=== PATIENT | female | born 1945 | race Caucasian/White ===

== ENCOUNTER 2019-09-03 18:35 | Inpatient (IN) | payer MEDICARE, OTHER ==
--- NOTE | 2019-09-03 19:00 | ED ---
General Adult HPI - General Chief complaint: Seizure Stated complaint: Neuro Issues Time Seen by Provider: 09/03/19 18:37 Source: patient, RN/MD, EMS, RN notes reviewed, old records reviewed Mode of arrival: EMS Limitations: no limitations - History of Present Illness Initial comments: Patient is a pleasant 73-year-old female presenting to the emergency department with concern for seizure. Patient was seen yesterday at [facility] following being unresponsive and difficult to arouse. Patient was then discharged. Patient today had a generalized tonic-clonic seizure witnessed by family. Patient then was postictal while in the emergency department. Patient has improved. Patient feels fatigued and achy. No history of similar symptoms previously. Patient states she did take lipozeene a few times in the beginning of the week. This was a new thing for her. At this time patient denies any weakness or confusion or change in mental status. - Related Data Home Medications Medication Instructions Recorded Confirmed Aspirin 81 mg PO DAILY 08/06/14 08/18/14 Glucosam/Neil-Msm1/C/Juventino/Bosw 1 tab PO BID 08/06/14 08/17/14 [Glucosamine-Chondroitin Tablet] Ibuprofen [Motrin] 200 - 400 mg PO Q6HR PRN 08/06/14 08/17/14 Multivit with Calcium,Iron,Min 1 each PO DAILY 08/06/14 08/17/14 [Women's Daily Multivitamin] Allergies Allergy/AdvReac Type Severity Reaction Status Date / Time No Known Allergies Allergy Verified 08/17/14 08:41 Review of Systems ROS Statement: Those systems with pertinent positive or pertinent negative responses have been documented in the HPI. ROS Other: All systems not noted in ROS Statement are negative. Constitutional: Denies: fever Eyes: Denies: eye pain ENT: Denies: ear pain Respiratory: Denies: cough, dyspnea Cardiovascular: Denies: chest pain Endocrine: Reports: fatigue Gastrointestinal: Denies: abdominal pain Genitourinary: Denies: dysuria Musculoskeletal: Denies: back pain Skin: Denies: rash Neurological: Reports: as per HPI Past Medical History Past Medical History: Eye Disorder, Hypertension, Osteoarthritis (OA), Seizure Disorder Additional Past Medical History / Comment(s): cataracts History of Any Multi-Drug Resistant Organisms: None Reported Past Surgical History: No Surgical Hx Reported Additional Past Surgical History / Comment(s): left/right cataract 08/06/14 Past Anesthesia/Blood Transfusion Reactions: No Reported Reaction Additional Past Anesthesia/Blood Transfusion Reaction / Comment(s): never had anes., no family problems Past Psychological History: Anxiety Smoking Status: Never smoker Past Alcohol Use History: None Reported Past Drug Use History: None Reported - Past Family History Mother Family Medical History: Cancer General Exam Limitations: no limitations General appearance: alert, in no apparent distress Head exam: Present: normocephalic Eye exam: Present: normal appearance, PERRL, EOMI. Absent: nystagmus Respiratory exam: Present: normal lung sounds bilaterally Cardiovascular Exam: Present: regular rate, normal rhythm GI/Abdominal exam: Present: soft. Absent: tenderness Extremities exam: Present: normal inspection Neurological exam: Present: alert, oriented X3, CN II-XII intact. Absent: motor sensory deficit Expanded Neurological exam: Present: protecting the airway Patient oriented to: Present: person, place, time Speech: Present: fluid speech Cranial nerves: EOM's Intact: Normal, Facial Sensation: Normal Motor strength exam: RUE: 5, LUE: 5, RLE: 5, LLE: 5 Eye Response: (4) open spontaneously Motor Response: (6) obeys commands Verbal Response: (5) oriented Psychiatric exam: Present: normal affect, normal mood Skin exam: Present: normal color Course Vital Signs 09/03/19 18:36 Temperature 99.6 F Pulse Rate 93 Respiratory 18 Rate Blood Pressure 152/78 O2 Sat by Pulse 97 Oximetry Medical Decision Making - Medical Decision Making Chart reviewed from [facility]. Dr. Keyes has been paged for admission for hospital call. Disposition Clinical Impression: New onset seizure Disposition: ADMITTED IP TO THIS HOSP Is patient prescribed a controlled substance at d/c from ED?: No Referrals: None,Stated [Primary Care Provider] - 1-2 days Decision Time: 18:59
[2019-09-03] MEDS ORDERED: ASPIRIN 325 MG TAB PO STA (19:01)
[2019-09-03] MEDS: SODIUM CHLORIDE 0.9% 1,000 ML IV SCH (19:25)
[2019-09-03] MEDS: levETIRAcetam IV 500 MG in SODIUM CHLORIDE 0.9% 100 ML IVPB SCH (19:25)
--- NOTE | 2019-09-03 21:48 | US ---
EXAMINATION TYPE: US carotid duplex BILAT DATE OF EXAM: 09/03/2019 COMPARISON: CT CLINICAL HISTORY: Stenosis. Stenosis. Patient had seizure today. HTN. EXAM MEASUREMENTS: RIGHT: Peak Systolic Velocity (PSV) cm/sec ----- Right CCA: 94.7 ----- Right ICA: 94.3 ----- Right ECA: 89.8 ICA/CCA ratio: 1.0 RIGHT: End Diastole cm/sec ----- Right CCA: 18.7 ----- Right ICA: 22.3 ----- Right ECA: 12.3 LEFT: Peak Systolic Velocity (PSV) cm/sec ----- Left CCA: 89.4 ----- Left ICA: 89.4 ----- Left ECA: 83.6 ICA/CCA ratio: 1.0 LEFT: End Diastole cm/sec ----- Left CCA: 17.9 ----- Left ICA: 23.4 ----- Left ECA: 11.1 VERTEBRALS (direction of flow): Right Vertebral: Antegrade Left Vertebral: Antegrade Rhythm: Normal Tortuous proximal carotid arteries. Elevated velocity obtained right prox CCA. Intimal thickening see n bilaterally. Minimal hyperechoic plaque seen bilateral carotid bifurcations. Hypoechoic area with hyperechoic center seen right neck: 0.9 x 0.9 x 0.3 cm. Hypoechoic-anechoic area seen right neck just superior and anterior to the carotid bifurcation. Area measures: 0.9 x 0.8 x 0.7 cm. Hypoechoic area with hyperechoic center seen left neck: 1.4 x 0.9 x 0.5 cm. *Incidental finding: Heterogeneous left thyroid lobe. Mixed isoechoic area seen with internal vascula rity seen measurin.5 x 1.1 x 0.9 cm. IMPRESSION: There is bilateral plaque formation. There is elevated velocity in the right and left common carotid arteries suggestive of 50-70% stenosis. There is antegrade flow in the vertebral arteries. Criteria for Assigning % of Stenosis / Diameter reduction (Estimation based on the indirect measurements of the internal carotid artery velocities (ICA PSV). 1. Normal (no stenosis)=ICA PSV < 125 cm/s: ratio < 2.0: ICA EDV<40 cm/s. 2. Less than 50% stenosis=ICA PSV < 125 cm/s: ratio < 2.0: ICA EDV<40 cm/s. 3. 50 to 69% stenosis=ICA PSV of 125 to 230 cm/s: ration 2.0 ? 4.0: ICA EDV 40-100 cm/s. 4. Greater than 70% stenosis to near occlusion= ICA PSV > 230 cm/s: ratio > 4.0: ICA EDV > 100 cm/s. 5. Near occlusion= ICA PSV velocities may be low or undetectable: variable ratio and ICA EDV. 6. Total occlusion=unable to detect flow.
[2019-09-04] MEDS: SODIUM CHLORIDE 0.9% 1,000 ML IV SCH ×2 (05:49→20:44)
[2019-09-04] MEDS: levETIRAcetam IV 500 MG in SODIUM CHLORIDE 0.9% 100 ML IVPB SCH ×2 (08:23→20:44)
[2019-09-04 09:23] LABS: Cholesterol 219 mg/dL (<200); HDL Cholesterol 53 mg/dL (40-60); LDL Cholesterol,Calculated 153 mg/dL (0-99); Triglycerides 66 mg/dL (<150)
[2019-09-04 10:33] LABS: HCT 39.2 % (34.0-46.0); MCH 31.3 pg (25.0-35.0); MCHC 33.3 g/dL (31.0-37.0); MCV 93.8 fL (80.0-100.0); Mean Platelet Volume 8.7; Platelet Count 199 k/uL (150-450); RBC 4.18 m/uL (3.80-5.40); RDW 12.3 % (11.5-15.5); WBC 8.2 k/uL (3.8-10.6)
--- NOTE | 2019-09-04 10:40 | MR ---
EXAMINATION TYPE: MR brain wo con DATE OF EXAM: 09/04/2019 COMPARISON: Outside CT dated 09/03/2019 no report available from the outside CT HISTORY: New onset of Seizures TECHNIQUE: Multiplanar, multisequence images of the brain and brainstem is performed without intravenous contras t. FINDINGS: Diffusion weighted images demonstrate no evidence of a recent infarct or other diffusion ab normality. There is no extra-axial fluid collection. There are scattered foci of T2/FLAIR hyperinten sity within the periventricular and subcortical white matter. Overall moderate burden in this patient most confluent in the periatrial white matter. Mesial temporal lobes are symmetric and unremarkable. The ventricular system and cisternal spaces are are prominent compatible with age-related volume los s. The right lateral ventricle is slightly larger than the left in the occipital horn, which may be c ongenital. Midline structures demonstrate normal morphology. The craniocervical junction appears within normal limits. Post contrast images demonstrate no abnormal enhancement. The dural venous sinuses appear pa tent. The visualized sinuses display mild circumferential mucosal thickening in the right maxillary s inus and mild mucosal thickening in the ethmoid sinuses. Frontal sinuses are hypoplastic. Rightward n elbert septal deviation is seen with left-sided mucosal hypertrophy of the nasal turbinates. Very trace amount of fluid in the left mastoid air cells. Orbits are symmetric.. IMPRESSION: 1. No acute infarct, midline shift or mass effect. 2. Age-related cerebral atrophy and moderate burden nonspecific white matter change, most commonly on the basis of chronic microangiopathy. 3. Mild paranasal sinus disease with trace amount of fluid in the left mastoid air cells.
[2019-09-04 11:06] LABS: Calcium 8.5 mg/dL (8.4-10.2)
--- NOTE | 2019-09-04 12:07 | P.HPIM ---
History of Present Illness 73-year-old female was admitted for possibly a seizure. Patient was recently discharged from [facility] after she was evaluated for unresponsiveness. Doesn't appear like much of workup was done at that time shortly after the discharge patient was shopping found to be unresponsive with some tonic activity no loss of bowel or bladder incontinence patient had lip biting may be a tongue bite too. Patient feels fatigued and achy. Patient was confused to this episode patient denied any aura-like symptoms, patient denied any headache or photophobia phonophobia, denied any weakness or loss of sensation anywhere. Patient denied any fever chills dysuria cough, no evidence of sepsis patient denied any drug abuse. Review of Systems REVIEW OF SYSTEMS: CONSTITUTIONAL: No fever, no malaise, no fatigue. HEENT: No recent visual problems or hearing problems. Denied any sore throat. CARDIOVASCULAR: No chest pain, orthopnea, PND, no palpitations, no syncope. PULMONARY: No shortness of breath, no cough, no hemoptysis. GASTROINTESTINAL: No diarrhea, no nausea, no vomiting, no abdominal pain. NEUROLOGICAL: No headaches, no weakness, no numbness. HEMATOLOGICAL: Denies any bleeding or petechiae. GENITOURINARY: Denies any burning micturition, frequency, or urgency. MUSCULOSKELETAL/RHEUMATOLOGICAL: Denies any joint pain, swelling, or any muscle pain. ENDOCRINE: Denies any polyuria or polydipsia. The rest of the 14-point review of systems is negative. Past Medical History Past Medical History: Eye Disorder, Hypertension, Osteoarthritis (OA), Seizure Disorder Additional Past Medical History / Comment(s): cataracts History of Any Multi-Drug Resistant Organisms: None Reported Past Surgical History: No Surgical Hx Reported Additional Past Surgical History / Comment(s): left/right cataract 08/06/14 Past Anesthesia/Blood Transfusion Reactions: No Reported Reaction Additional Past Anesthesia/Blood Transfusion Reaction / Comment(s): never had anes., no family problems Past Psychological History: Anxiety Additional Psychological History / Comment(s): related to procedure Smoking Status: Never smoker Past Alcohol Use History: None Reported Past Drug Use History: None Reported - Past Family History Mother Family Medical History: Cancer Medications and Allergies Home Medications Medication Instructions Recorded Confirmed Type Fish Oil/Dha/Epa [Fish Oil 1,200 1 cap PO DAILY 09/03/19 09/03/19 History mg Fish Oil] Lipozene 1 cap PO DAILY 09/03/19 09/03/19 History Losartan [Cozaar] 50 mg PO DAILY 09/03/19 09/04/19 History Sulfamethox-Tmp 800-160Mg [Bactrim 1 tab PO BID 09/03/19 09/04/19 History DS 800-160 mg] Allergies Allergy/AdvReac Type Severity Reaction Status Date / Time No Known Allergies Allergy Verified 09/04/19 10:51 Physical Exam Vitals: Vital Signs Temp Pulse Pulse Resp BP BP Pulse Ox 09/04/19 08:00 79 16 09/04/19 07:54 99.3 F 79 16 128/75 94 L 09/04/19 03:41 99.1 F 75 17 133/74 96 09/04/19 00:23 98.4 F 77 16 147/72 95 09/04/19 00:04 82 18 140/73 97 09/03/19 23:11 98.4 F 77 16 147/72 95 09/03/19 23:00 98.2 F 70 18 120/73 97 09/03/19 21:00 87 18 134/81 96 09/03/19 18:36 99.6 F 93 18 152/78 97 Intake and Output 09/03/19 09/04/19 09/04/19 22:59 06:59 14:59 Other: # Voids 2 Weight 68.039 kg 68.039 kg PHYSICAL EXAMINATION: GENERAL: The patient is alert and oriented x3, not in any acute distress. Well developed, well nourished. HEENT: Pupils are round and equally reacting to light. EOMI. No scleral icterus. No conjunctival pallor. Normocephalic, atraumatic. No pharyngeal erythema. No thyromegaly. CARDIOVASCULAR: S1 and S2 present. No murmurs, rubs, or gallops. PULMONARY: Chest is clear to auscultation, no wheezing or crackles. ABDOMEN: Soft, nontender, nondistended, normoactive bowel sounds. No palpable organomegaly. MUSCULOSKELETAL: No joint swelling or deformity. EXTREMITIES: No cyanosis, clubbing, or pedal edema. NEUROLOGICAL: Gross neurological examination did not reveal any focal deficits. SKIN: No rashes. Results CBC & Chem 7: 09/04/19 08:19 09/04/19 08:19 Labs: Abnormal Lab Results - Last 24 Hours (Table) 09/04/19 Range/Units 08:19 Cholesterol 219 H (<200) mg/dL LDL Cholesterol, Calc 153 H (0-99) mg/dL Thrombosis Risk Factor Assmnt - Choose All That Apply Each Risk Factor Represents 2 Points: Age 61-74 years Thrombosis Risk Factor Assessment Total Risk Factor Score: 2 Thrombosis Risk Factor Assessment Level: Low Risk Assessment and Plan Plan: -Possible new onset seizure patient is undergoing stroke workup as well as seizure workup LDL is elevated neurology will evaluate the patient and patient was started on Keppra patient had an MRI which did not show any stroke or any other significant abnormality patient is awaiting EEG echocardiogram is also being obtained at this time. There is no evidence of infection at this time. Patient is on seizure precautions -Hypertension Cozaar will be resumed monitor the blood pressure
[2019-09-04] MEDS ORDERED: LOSARTAN 50 MG TAB PO STA (19:48)
--- NOTE | 2019-09-04 22:10 | EEG ---
ELECTROENCEPHALOGRAM REPORT DATE OF SERVICE: 09/04/2019. HISTORY: This is an inpatient EEG requested for further evaluation of altered mental status in a 73-year-old female. No prior EEG is available for comparison. TECHNICAL REPORT: This is an inpatient EEG performed on an [employer] (Ins[employer]) EEG monitor with electrodes placed according to the international 10-20 system and a single EKG channel. Simultaneous video EEG monitoring was performed. This EEG was reviewed in both longitudinal bipolar common average referential and transverse montages. Photic stimulation was performed. Hyperventilation was not performed. The recording begins with a very low amplitude background with excessive muscle artifact noted. The awake background ranges from beginning at 7 Hz, which is consistent with drowsiness, then the patient awakens more during the initial portion of the study with her posterior-dominant rate rhythm ranging between 9 and maximum 13 Hz. The posterior-dominant rhythm minimally attenuates with eye opening. Photic stimulation was performed at various flash frequencies and failed to elicit a consistent driving response. Following photic stimulation, the patient transitioned into drowsiness, which was associated with the attenuation of the background. Rare slow rolling eye movements were noted. An increase in beta activity was more prominent in the anterior and central head regions. The patient transitioned into stage II sleep at 16:41:29. This was associated with a slowing of the background frequencies to mixed theta range. Synchronous sleep spindles were quite prominent throughout stage II sleep. Rare vertex waves were noted. Deeper stages of sleep were not achieved. Toward the end of the recording, the patient abruptly aroused out of stage II sleep and returned to brief wakefulness toward the end of the study. The patient had excessive muscle artifact superimposed over the background. The posterior-dominant rhythm toward the end of this recording ranged between 12 and 13 Hz. IMPRESSION: This is a normal wake drowsy sleep EEG study. No abnormalities were noted such as electrographic seizures, clinical seizures or hemispheric or focal slowing. No abnormalities were noted during photic stimulation. No abnormalities were noted during the EKG. CLINICAL CORRELATION: This EEG does not rule out an underlying seizure tendency; thus further clinical correlation is needed. If clinically indicated, a more prolonged overnight study and/or serial EEGs are recommended. MMODL / IJN: [id number] / DANNIELLE
[2019-09-05] MEDS: ASPIRIN 325 MG TAB PO SCH ×2 (02:20→08:20)
[2019-09-05] MEDS: SODIUM CHLORIDE 0.9% 1,000 ML IV SCH ×3 (05:26→20:33)
[2019-09-05 06:53] LABS: HCT 38.9 % (34.0-46.0); HGB 12.1 gm/dL (11.4-16.0); MCH 29.7 pg (25.0-35.0); MCHC 31.2 g/dL (31.0-37.0); MCV 95.3 fL (80.0-100.0); Platelet Count 188 k/uL (150-450); RBC 4.08 m/uL (3.80-5.40); RDW 12.3 % (11.5-15.5); WBC 7.8 k/uL (3.8-10.6)
[2019-09-05] MEDS: levETIRAcetam IV 500 MG in SODIUM CHLORIDE 0.9% 100 ML IVPB SCH ×2 (08:20→20:32)
[2019-09-05] MEDS: LOSARTAN 50 MG TAB PO SCH (08:20)
--- NOTE | 2019-09-05 11:37 | ECHOF ---
Referral Reason:Thrombus MEASUREMENTS -------- HEIGHT: 170.2 cm WEIGHT: 68.0 kg BP: 133/74 RVIDd: 3.2 cm (< 3.3) IVSd: 1.4 cm (0.6 - 1.1) LVIDd: 3.7 cm (3.9 - 5.3) LVPWd: 1.4 cm (0.6 - 1.1) IVSs: 1.9 cm LVIDs: 2.5 cm LVPWs: 2.0 cm LA Diam: 3.0 cm (2.7 - 3.8) LAESV Index (A-L): 20.77 ml/m Ao Diam: 3.9 cm (2.0 - 3.7) AV Cusp: 2.3 cm (1.5 - 2.6) MV EXCURSION: 13.189 mm (> 18.000) MV EF SLOPE: 60 mm/s (70 - 150) EPSS: 0.6 cm MV E Fredrick: 0.76 m/s MV DecT: 294 ms MV A Fredrick: 0.98 m/s MV E/A Ratio: 0.77 RAP: 5.00 mmHg RVSP: 28.71 mmHg FINDINGS -------- Sinus rhythm. This was a technically adequate study. The left ventricular size is normal. There is moderate concentric left ventricular hypertrophy. O verall left ventricular systolic function is normal with, an EF between 60 - 65 %. The right ventricle is normal in size. Normal LA size by volume 22+/-6 ml/m2. The right atrium is normal in size. Aneurysmal Interatrial septum. There is mild aortic valve sclerosis. There is mild aortic regurgitation. The mitral valve is normal. Mild tricuspid regurgitation present. Right ventricular systolic pressure is normal at < 35 mmHg. Trace/mild (physiologic) pulmonic regurgitation. The aortic root is dilated measuring 3.9cm. Normal inferior vena cava with normal inspiratory collapse consistent with estimated right atrial pre ssure of 5 mmHg. There is no pericardial effusion. CONCLUSIONS -------- 1. Sinus rhythm. 2. This was a technically adequate study. 3. The left ventricular size is normal. 4. There is moderate concentric left ventricular hypertrophy. 5. Overall left ventricular systolic function is normal with, an EF between 60 - 65 %. 6. The right ventricle is normal in size. 7. Normal LA size by volume 22+/-6 ml/m2. 8. The right atrium is normal in size. 9. Aneurysmal Interatrial septum. 10. There is mild aortic valve sclerosis. 11. There is mild aortic regurgitation. 12. The mitral valve is normal. 13. Mild tricuspid regurgitation present. 14. Right ventricular systolic pressure is normal at < 35 mmHg. 15. Trace/mild (physiologic) pulmonic regurgitation. 16. The aortic root is dilated measuring 3.9cm. 17. Normal inferior vena cava with normal inspiratory collapse consistent with estimated right atrial pressure of 5 mmHg. 18. There is no pericardial effusion. WELDING MACHINE SETTER: Mary Ca RDCS
--- NOTE | 2019-09-05 14:49 | P.PN ---
Subjective 73-year-old female was admitted for possibly a seizure. Patient was recently discharged from [facility] after she was evaluated for unresp onsiveness. Doesn't appear like much of workup was done at that time shortly after the discharge patient was shopping found to be unresponsive with some tonic activity no loss of bowel or bladder incontinence patient had lip biting may be a tongue bite too. Patient feels fatigued and achy. Patient was confused to this episode patient denied any aura-like symptoms, patient denied any headache or photophobia phonophobia, denied any weakness or loss of sensation anywhere. Patient denied any fever chills dysuria cough, no evidence of sepsis patient denied any drug abuse. 09/05/2019 No overnight events patient had an EEG which did not show any significant abnormality MRI didn't show any acute stroke carotid Doppler showed 50-75 stenosis in both external carotids, neurology will evaluate the patient. Patient is alert oriented 3 at this time Constitutional: Denied any fatigue denied any fever. Cardio vascular: denied any chest pain, palpitations Gastrointestinal denied any nausea vomiting Pulmonary: Denied any shortness of breath cough Neurologic denied any new focal deficits All inpatient medications were reviewed and appropriate changes in these medications as dictated in the interval history and assessment and plan. Objective - Vital Signs Vital signs: Vital Signs Temp 98.7 F 09/05/19 07:00 Pulse 74 09/05/19 08:00 Resp 18 09/05/19 08:00 BP 160/78 09/05/19 07:00 Pulse Ox 94 L 09/05/19 07:00 Intake & Output 09/04/19 09/05/19 09/05/19 18:59 06:59 18:59 Intake Total 180 Balance 180 Intake: Oral 180 Other: # Voids 2 1 - Exam PHYSICAL EXAMINATION: GENERAL: The patient is alert and oriented x3, not in any acute distress. Well developed, well nourished. HEENT: Pupils are round and equally reacting to light. EOMI. No scleral icterus. No conjunctival pallor. Normocephalic, atraumatic. No pharyngeal erythema. No thyromegaly. CARDIOVASCULAR: S1 and S2 present. No murmurs, rubs, or gallops. PULMONARY: Chest is clear to auscultation, no wheezing or crackles. ABDOMEN: Soft, nontender, nondistended, normoactive bowel sounds. No palpable organomegaly. MUSCULOSKELETAL: No joint swelling or deformity. EXTREMITIES: No cyanosis, clubbing, or pedal edema. NEUROLOGICAL: Gross neurological examination did not reveal any focal deficits. SKIN: No rashes. - Labs CBC & Chem 7: 09/05/19 06:15 09/04/19 08:19 Assessment and Plan Plan: -Possible new onset seizure patient is undergoing stroke workup as well as seizure workup LDL is elevated neurology will evaluate the patient and patient was started on Keppra patient had an MRI which did not show any stroke or any other significant abnormality EEG and echocardiogram no significant abnormality. Carotid Doppler less than 70% occlusion in both carotids Patient is on seiz ure precautions -Hypertension Cozaar will be resumed monitor the blood pressure
[2019-09-06] MEDS: amLODIPine 5 MG TAB PO SCH ×2 (00:41→08:46)
[2019-09-06] MEDS: SODIUM CHLORIDE 0.9% 1,000 ML IV SCH ×2 (04:08→08:46)
[2019-09-06] MEDS: LOSARTAN 50 MG TAB PO SCH (08:45)
[2019-09-06] MEDS: ASPIRIN 325 MG TAB PO SCH (08:46)
[2019-09-06] MEDS: levETIRAcetam IV 500 MG in SODIUM CHLORIDE 0.9% 100 ML IVPB SCH (08:46)
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
--- NOTE | 2019-09-06 14:02 | P.CNNES ---
History of Present Illness Consult date: 09/05/19 Reason for Consult: NEW ONSET SEIZURE History of Present Illness: LATE NOTE ENTRY FOR 09/05/19 This is a new neurology note requested for further advice and recommendations for 73-year-old female for possible seizures. The patient had initially been evaluated at [facility] for altered mental status. The history I obtained is both from herself and her son. Apparently while the patient was shopping this was prior to admission recurrent she had a generalized tonic- clonic seizure with balance bladder incontinence unprovoked. Also lip biting was noted. The patient denies any prior illness or sick contacts prior to the event. Prior to this event the patient reports that her had her on Saturday at 9:30 PM while sleeping he found her gurgling she woke up and went back to sleep. She did this again in the EMS came and evaluated her. Follow she was admitted to [facility] and then reportedly had another event. According to her son however while he was driving she was in the backseat of the car and had a seizure where she actually became cyanotic the story is corrected she's had 3 unprovoked seizures. Her workup includes the normal EEG of the brain. A MRI of the brain without any evidence of intracranial pathology. A carotid Doppler study that showed 50-75% percent stenosis of the external carotid arteries. A CT angiogram head and neck showed no evidence of high-grade stenosis or large vessel occlusion. This patient does have stroke risk factors which include hypertension and dyslipidemia. On September 03 the patient underwent a cardiac echo with an ejection fraction of 6065% . Mild aortic valve stenosis was seen along with mild aortic valve regurgitation. The patient provides additional history that the week these events occurred she had started experimenting taking bovine college and a diet pill known his glipizide which is KONJAC root which is an appetite suppressant. The patient reports that on the second time she took a collagen she experienced swelling of her throat and this occurred the night she had the first event that her witnessed. Since the second event with filling the throat fullness she is no longer taking bovine collagen. Further discussion with her hospitalist on the first 2 days of admission the patient did apparently have prolonged postictal state of confusion and fogginess. However today during this intake the patient was totally coherent and back to her baseline. Past Medical History Past Medical History: Eye Disorder, Hypertension, Osteoarthritis (OA), Seizure Disorder Additional Past Medical History / Comment(s): cataracts History of Any Multi-Drug Resistant Organisms: None Reported Past Surgical History: No Surgical Hx Reported Additional Past Surgical History / Comment(s): left/right cataract 08/06/14 Past Anesthesia/Blood Transfusion Reactions: No Reported Reaction Additional Past Anesthesia/Blood Transfusion Reaction / Comment(s): never had anes., no family problems Past Psychological History: Anxiety Additional Psychological History / Comment(s): related to procedure Smoking Status: Never smoker Past Alcohol Use History: None Reported Past Drug Use History: None Reported - Past Family History Mother Family Medical History: Cancer Medications and Allergies Home Medications Medication Instructions Recorded Confirmed Type Fish Oil/Dha/Epa [Fish Oil 1,200 1 cap PO DAILY 09/03/19 09/03/19 History mg Fish Oil] Lipozene 1 cap PO DAILY 09/03/19 09/03/19 History Aspirin 81 mg PO DAILY #30 chewable 09/06/19 Rx Losartan [Cozaar] 100 mg PO DAILY #0 09/06/19 09/04/19 Rx levETIRAcetam [Keppra] 500 mg PO BID #60 tab 09/06/19 Rx Allergies Allergy/AdvReac Type Severity Reaction Status Date / Time No Known Allergies Allergy Verified 09/04/19 10:51 Physical Examination - Vital Signs Vital Signs: Vital Signs Temp Pulse Pulse Resp BP BP Pulse Ox 09/06/19 06:46 98.1 F 78 18 179/85 92 L 09/06/19 01:00 98.3 F 67 20 158/82 95 09/05/19 20:00 98 F 74 20 179/74 95 09/05/19 15:00 97.6 F 72 16 158/86 94 L Intake and Output 09/05/19 09/06/19 09/06/19 22:59 06:59 14:59 Intake Total 100 440 Balance 100 440 Intake: Oral 100 440 Other: Voiding Method Toilet # Voids 1 1 1 General exam: Appearance: No acute distress well-nourished. Moderately obese. HEENT: Clear sclera clear oropharynx broad-based tongue neuro posterior pharynx Saskia Pedroza grade 3. Large neck circumference 15 inches greater circumference. Pupils: 2 mm equally reactive to light and accommodation. Pulses: Radial pedal pulses are equal and symmetric. Extremities: No edema noted in the hands or feet or clubbing of the digits. Neurological exam Mental status patient is awake alert oriented 3. Speech fluent. Affect appropriate. Cranial nerves: Cranial nerves III through XII are intact. No nystagmus noted on vertical horizontal gaze. V1 through V3 sensory is intact. Face is symmetr ic. Palate elevates symmetrically. Cranial nerve VIII is intact by clinical observation. Shoulder shrug symmetric. Tongue midline without fasciculations deviation. Motor examination: Moves all 4 extremities equally. Normal muscle bulk and tone throughout. Strength is 5 out of 5 throughout. Pronator drift negative. No tremors fasciculations noted. No distal wasting of the muscles noted. Coordination testing: Intact to finger to nose testing with eyes open and eyes closed. Rapid sequential finger tapping is intact. He'll serrato maneuver intact. No dysmetria noted on either of these maneuvers. Next Sensory examination: Grossly intact to light touch throughout. Deep tendon reflexes: +2 over biceps brachial radialis. Patellar reflexes are absent. Ankle jerks absent bilaterally. Plantar response mute bilaterally. No ankle clonus elicited. Gait examination deferred. Results - Laboratory Findings CBC and BMP: 09/05/19 06:15 09/04/19 08:19 Abnormal Lab Findings: Abnormal Labs 09/04/19 08:19 Cholesterol 219 H LDL Cholesterol, Calc 153 H Assessment and Plan Assessment: Assessment recommendations this is a 73-year-old female with a known history for hypertension who presented with per report possibly 3 witnessed seizures with postictal state. The etiology for these events are still unclear. Her workup to date does not show any evidence of intracranial mass lesion, aneurysm, dissection or other intracranial pathology. Her history however is suspicious for obstructive sleep apnea. The first event described was while asleep or her found her girdling this could've represented a prolonged apnea which then triggered an anoxic event and seizure. The next 2 events described do appear to be unprovoked seizures warranting this patient to be maintained on a maintenance dose of a broad-spectrum anticon vulsant. Her neurological exam is nonfocal. Additional history is concerning for possible ALLERGY to bovine collagen or even cogent diet stimulator that could possibly triggered some immune response. The patient is a fairly comprehensive cardiovascular workup. Her carotid ultrasound did show a rather higher degree of stenosis than what we saw compared to the CT injury. Carotid ultrasounds can often overestimate the degree of stenosis. I would base a final conclusion on the results of the CT angiogram of the head and neck which were negative. The MRI of the brain also is considered negative for any intracranial pathology. Plan: Recommendations 1. Patient should be maintained on low-dose Keppra 500 mg every 12 and arrange to have follow-up visits with outpatient neurologist. Would recommend a follow- up EEG and if clinically indicated a ambulatory EEG. 2. Patient should continue on enteric-coated aspirin as well as low-dose statin for stroke from 3. I would strongly recommend this patient be evaluated as an outpatient with a home sleep study or in lab overnight polysomnogram to rule out obstructive sleep apnea. Obstructive sleep apnea is the third bleeding risk factor for stroke independent of diabetes, hypertension and atrial fibrillation. 4. Rectal Valium Diastat 15 mg should be provided to discharge and family instructed how to administer this rectally in the event the patient has a prolonged seizure lasting 3-4 minutes. 911 should be activated. 5. The patient has been counseled on driving and seizures for the [facility]. This patient's prognosis remains good. She does however warrant further close monitoring and investigation with outpatient neurology to uncover what might be potentially triggers for these underlying unprovoked seizures. Thank you for this consultation. Patient may be discharged. Cleared by neuro logy.
--- NOTE | 2019-09-06 14:06 | P.DS ---
Providers Date of admission: 09/03/19 19:02 Attending physician: Bhavna Keyes Consults: 09/03/19 19:01 Consult Physician Urgent Consulting Provider: Melany Mckeon Consult Reason/Comments: new onset seizure Do you want consulting provider notified?: Yes Primary care physician: Stated None Hospital Course: 73-year-old female was admitted for possibly a seizure. Patient was recently discharged from [facility] after she was evaluated for unresponsiveness. Doesn't appear like much of workup was done at that time shortly after the discharge patient was shopping found to be unresponsive with some tonic activity no loss of bowel or bladder incontinence patient had lip biting may be a tongue bite too. Patient feels fatigued and achy. Patient was confused to this episode patient denied any aura-like symptoms, patient denied any headache or photophobia phonophobia, denied any weakness or loss of sensation anywhere. Patient denied any fever chills dysuria cough, no evidence of sepsis patient denied any drug abuse. 09/05/2019 No overnight events patient had an EEG which did not show any significant abnormality MRI didn't show any acute stroke carotid Doppler showed 50-75 stenosis in both external carotids, neurology will evaluate the patient. Patient is alert oriented 3 at this time 09/06/[address] angiogram of the head and neck did not show any carotid stenosis, although patient will be discharged on aspirin her LDL is 150 will be discharged on low-dose of statin. Neurology is recommending Keppra 500 twice a day until patient is evaluated by neurology as an outpatient. MRA showed age-related cerebral atrophy with nonspecific white matter changes no other significant abdominal he was appreciated. Patient had a clinical seizures because of which are patient is being discharged on Keppra and as needed Valium PHYSICAL EXAMINATION: GENERAL: The patient is alert and oriented x3, not in any acute distress. Well developed, well nourished. HEENT: Pupils are round and equally reacting to light. EOMI. No scleral icterus. No conjunctival pallor. Normocephalic, atraumatic. No pharyngeal erythema. No thyromegaly. CARDIOVASCULAR: S1 and S2 present. No murmurs, rubs, or gallops. PULMONARY: Chest is clear to auscultation, no wheezing or crackles. ABDOMEN: Soft, nontender, nondistended, normoactive bowel sounds. No palpable organomegaly. MUSCULOSKELETAL: No joint swelling or deformity. EXTREMITIES: No cyanosis, clubbing, or pedal edema. NEUROLOGICAL: Gross neurological examination did not reveal any focal deficits. SKIN: No rashes. Assessment and Plan Plan: -Possible new onset seizure further management as mentioned above stroke was ruled ou. patient had 3 clinical seizures -Hyperlipidemia -Hypertension Cozaar will be continued and we will increase the dose to 100 Plan - Discharge Summary Discharge Rx Participant: No New Discharge Prescriptions: New Aspirin 81 mg PO DAILY #30 chewable levETIRAcetam [Keppra] 500 mg PO BID #60 tab Continue Fish Oil/Dha/Epa [Fish Oil 1,200 mg Fish Oil] 1 cap PO DAILY Lipozene 1 cap PO DAILY Changed Losartan [Cozaar] 100 mg PO DAILY #0 Discontinued Sulfamethox-Tmp 800-160Mg [Bactrim DS 800-160 mg] 1 tab PO BID Discharge Medication List Fish Oil/Dha/Epa [Fish Oil 1,200 mg Fish Oil] 1 cap PO DAILY 09/03/19 [History] Lipozene 1 cap PO DAILY 09/03/19 [History] Aspirin 81 mg PO DAILY #30 chewable 09/06/19 [Rx] Losartan [Cozaar] 100 mg PO DAILY #0 09/06/19 [Rx] levETIRAcetam [Keppra] 500 mg PO BID #60 tab 09/06/19 [Rx] Follow up Appointment(s)/Referral(s): Leonardo Lakhani MD [REFERRING] - 1 Week Jeremias Hobbs MD [STAFF PHYSICIAN] - 1 Week Discharge Disposition: HOME SELF-CARE
[2019-09-06 16:10] VITALS: BP 167/90; PULSE 82; RESP 16; TEMP 97.7
== END 2019-09-06 16:25 | disposition home or self-care (01) | DRG 101 ==
LOC: EC 18:35 → 4SSUR 19:02
PROVIDERS: ADMIT Hospitalist; ATTEND Hospitalist
DX: G40.409 Other generalized epilepsy and epileptic syndromes, not intractable, without status epilepticus (principal); G31.9 Degenerative disease of nervous system, unspecified; Z11.59 Encounter for screening for other viral diseases; I10 Essential (primary) hypertension; M19.90 Unspecified osteoarthritis, unspecified site; F41.9 Anxiety disorder, unspecified; E78.5 Hyperlipidemia, unspecified; I35.2 Nonrheumatic aortic (valve) stenosis with insufficiency; G47.33 Obstructive sleep apnea (adult) (pediatric); Z79.899 Other long term (current) drug therapy; Z98.42 Cataract extraction status, left eye; Z98.41 Cataract extraction status, right eye; Z80.9 Family history of malignant neoplasm, unspecified
CPT/HCPCS: 70496; 70498; 70551; 80048; 80061; 85027; 87635; 93306; 93880; 95819; 96365; 99285

== ENCOUNTER 2021-08-06 22:27 | Emergency (ER) | payer MEDICARE ==
[2021-08-06 22:53] VITALS: TEMP 98
[2021-08-06] MEDS ORDERED: SODIUM CHLORIDE 0.9% 1,000 ML IV STA (23:14)
[2021-08-07 00:01] LABS: Basophils % (A) 0 %; Eosinophils # (A) 0.1 k/uL (0-0.7); Eosinophils % (A) 1 %; HCT 40.7 % (34.0-46.0); HGB 14.1 gm/dL (11.4-16.0); Lymphocytes # (A) 1.3 k/uL (1.0-4.8); Lymphocytes % (A) 14 %; MCH 31.8 pg (25.0-35.0); MCHC 34.5 g/dL (31.0-37.0); MCV 92.2 fL (80.0-100.0); Mean Platelet Volume 7.6; Monocytes # (A) 0.6 k/uL (0-1.0); Monocytes % (A) 6 %; Neutrophils # (A) 7.3 k/uL (1.3-7.7); Neutrophils % (A) 78 %; Platelet Count 237 k/uL (150-450); RBC 4.41 m/uL (3.80-5.40); RDW 12.1 % (11.5-15.5); WBC 9.4 k/uL (3.8-10.6)
--- NOTE | 2021-08-07 00:09 | ED ---
Altered Mental Status HPI - General Chief Complaint: Neuro Symptoms/Deficit Stated Complaint: Hypertension Time Seen by Provider: 08/06/21 22:28 Source: patient, RN notes reviewed, old records reviewed Mode of arrival: EMS Limitations: no limitations - History of Present Illness Initial Comments: This is a 75-year-old female to the ER today. Patient presents today for evaluation regards to some confusion some altered mental status possible fever. Please she has recurrent urinary tract infection. Patient denies any headache but has been seeing and not acting appropriately per both herself and family member, neighbor who is at bedside. Patient is no real significant medical history takes has no chest pain or shortness of breath, no travel history or sick contacts. Symptoms are improving here in the ER and she did have a fever today. No recent change in medications. MD Complaint: altered mental status, confusion -: hour(s) Severity: mild Consistency of Symptoms: waxing and waning Context: history of similar presentation Associated Symptoms: denies other symptoms Treatments Prior to Arrival: IV fluid, oxygen - Related Data Home Medications Medication Instructions Recorded Confirmed Fish Oil/Dha/Epa [Fish Oil 1,200 1 cap PO DAILY 09/03/19 09/03/19 mg Fish Oil] Lipozene 1 cap PO DAILY 09/03/19 09/03/19 Previous Rx's Medication Instructions Recorded Aspirin 81 mg PO DAILY #30 chewable 09/06/19 Atorvastatin [Lipitor] 10 mg PO HS #30 tab 09/06/19 Losartan [Cozaar] 100 mg PO DAILY #0 09/06/19 levETIRAcetam [Keppra] 500 mg PO BID #60 tab 09/06/19 Allergies Allergy/AdvReac Type Severity Reaction Status Date / Time No Known Allergies Allergy Verified 09/04/19 10:51 Review of Systems ROS Statement: Those systems with pertinent positive or pertinent negative responses have been documented in the HPI. ROS Other: All systems not noted in ROS Statement are negative. Past Medical History Past Medical History: Eye Disorder, Hypertension, Osteoarthritis (OA), Seizure Disorder Additional Past Medical History / Comment(s): cataracts History of Any Multi-Drug Resistant Organisms: None Reported Past Surgical History: No Surgical Hx Reported Additional Past Surgical History / Comment(s): left/right cataract 08/06/14 Past Anesthesia/Blood Transfusion Reactions: No Reported Reaction Additional Past Anesthesia/Blood Transfusion Reaction / Comment(s): never had anes., no family problems Past Psychological History: Anxiety Additional Psychological History / Comment(s): related to procedure Past Alcohol Use History: None Reported Past Drug Use History: None Reported - Past Family History Mother Family Medical History: Cancer General Exam General appearance: alert, in no apparent distress Head exam: Present: atraumatic, normocephalic, normal inspection Eye exam: Present: normal appearance, PERRL, EOMI. Absent: scleral icterus, c onjunctival injection, periorbital swelling ENT exam: Present: normal exam, mucous membranes moist Neck exam: Present: normal inspection. Absent: tenderness, meningismus, lymphadenopathy Respiratory exam: Present: normal lung sounds bilaterally. Absent: respiratory distress, wheezes, rales, rhonchi, stridor Cardiovascular Exam: Present: regular rate, normal rhythm, normal heart sounds. Absent: systolic murmur, diastolic murmur, rubs, gallop, clicks GI/Abdominal exam: Present: soft, normal bowel sounds. Absent: distended, tenderness, guarding, rebound, rigid Extremities exam: Present: normal inspection, full ROM, normal capillary refill. Absent: tenderness, pedal edema, joint swelling, calf tenderness Back exam: Present: normal inspection Neurological exam: Present: alert, oriented X3, CN II-XII intact Psychiatric exam: Present: normal affect, normal mood Skin exam: Present: warm, dry, intact, normal color. Absent: rash Course Vital Signs 08/06/21 08/06/21 08/07/21 22:50 23:39 00:00 Temperature 98.0 F Pulse Rate 89 80 85 Respiratory 16 18 18 Rate Blood Pressure 168/97 146/100 166/85 O2 Sat by Pulse 94 L 94 L 94 L Oximetry 08/07/21 01:00 Temperature Pulse Rate 89 Respiratory 16 Rate Blood Pressure 174/90 O2 Sat by Pulse 94 L Oximetry - Reevaluation(s) Reevaluation #1: 08/07/21 01:30 Medical record is reviewed Reevaluation #2: 08/07/21 01:30 Patient informed results and questions answered Reevaluation #3: 08/07/21 01:30 Patient currently awake alert mentating appropriately can be discharged home Medical Decision Making - Medical Decision Making 75 female will treat for suspected urinary tract infection, patient can be discharged home - Lab Data Result diagrams: 08/06/21 23:31 08/06/21 23:31 Lab Results 08/06/21 08/06/21 08/06/21 Range/Units 23:31 23:31 23:31 WBC 9.4 (3.8-10.6) k/uL RBC 4.41 (3.80-5.40) m/uL Hgb 14.1 (11.4-16.0) gm/dL Hct 40.7 (34.0-46.0) % MCV 92.2 (80.0-100.0) fL MCH 31.8 (25.0-35.0) pg MCHC 34.5 (31.0-37.0) g/dL RDW 12.1 (11.5-15.5) % Plt Count 237 (150-450) k/uL MPV 7.6 Neutrophils % 78 % Lymphocytes % 14 % Monocytes % 6 % Eosinophils % 1 % Basophils % 0 % Neutrophils # 7.3 (1.3-7.7) k/uL Lymphocytes # 1.3 (1.0-4.8) k/uL Monocytes # 0.6 (0-1.0) k/uL Eosinophils # 0.1 (0-0.7) k/uL Basophils # 0.0 (0-0.2) k/uL PT 10.7 (9.0-12.0) sec INR 1.0 (<1.2) APTT 22.8 (22.0-30.0) sec Sodium (137-145) mmol/L Potassium (3.5-5.1) mmol/L Chloride (98-107) mmol/L Carbon Dioxide (22-30) mmol/L Anion Gap mmol/L BUN (7-17) mg/dL Creatinine (0.52-1.04) mg/dL Est GFR (CKD-EPI)AfAm (>60 ml/min/1.73 sqM) Est GFR (CKD-EPI)NonAf (>60 ml/min/1.73 sqM) Glucose (74-99) mg/dL Plasma Lactic Acid Silvestre (0.7-2.0) mmol/L Calcium (8.4-10.2) mg/dL Phosphorus (2.5-4.5) mg/dL Magnesium (1.6-2.3) mg/dL Total Bilirubin (0.2-1.3) mg/dL AST (14-36) U/L ALT (4-34) U/L Alkaline Phosphatase (38-126) U/L Troponin I (0.000-0.034) ng/mL Total Protein (6.3-8.2) g/dL Albumin (3.5-5.0) g/dL Urine Color Yellow Urine Appearance Clear (Clear) Urine pH 5.5 (5.0-8.0) Ur Specific Rolette 1.014 (1.001-1.035) Urine Protein Trace H (Negative) Urine Glucose (UA) Negative (Negative) Urine Ketones Trace H (Negative) Urine Blood Negative (Negative) Urine Nitrite Negative (Negative) Urine Bilirubin Negative (Negative) Urine Urobilinogen <2.0 (<2.0) mg/dL Ur Leukocyte Esterase Moderate H (Negative) Urine RBC 2 (0-5) /hpf Urine WBC 3 (0-5) /hpf Ur Squamous Epith Cells 4 (0-4) /hpf Urine Bacteria Rare H (None) /hpf Urine Mucus Occasional H (None) /hpf 08/06/21 08/06/21 08/06/21 Range/Units 23:31 23:31 23:31 WBC (3.8-10.6) k/uL RBC (3.80-5.40) m/uL Hgb (11.4-16.0) gm/dL Hct (34.0-46.0) % MCV (80.0-100.0) fL MCH (25.0-35.0) pg MCHC (31.0-37.0) g/dL RDW (11.5-15.5) % Plt Count (150-450) k/uL MPV Neutrophils % % Lymphocytes % % Monocytes % % Eosinophils % % Basophils % % Neutrophils # (1.3-7.7) k/uL Lymphocytes # (1.0-4.8) k/uL Monocytes # (0-1.0) k/uL Eosinophils # (0-0.7) k/uL Basophils # (0-0.2) k/uL PT (9.0-12.0) sec INR (<1.2) APTT (22.0-30.0) sec Sodium 136 L (137-145) mmol/L Potassium 3.9 (3.5-5.1) mmol/L Chloride 101 (98-107) mmol/L Carbon Dioxide 24 (22-30) mmol/L Anion Gap 11 mmol/L BUN 25 H (7-17) mg/dL Creatinine 0.89 (0.52-1.04) mg/dL Est GFR (CKD-EPI)AfAm 74 (>60 ml/min/1.73 sqM) Est GFR (CKD-EPI)NonAf 64 (>60 ml/min/1.73 sqM) Glucose 107 H (74-99) mg/dL Plasma Lactic Acid Silvestre 1.2 (0.7-2.0) mmol/L Calcium 9.3 (8.4-10.2) mg/dL Phosphorus 4.0 (2.5-4.5) mg/dL Magnesium 2.1 (1.6-2.3) mg/dL Total Bilirubin 0.8 (0.2-1.3) mg/dL AST 30 (14-36) U/L ALT 20 (4-34) U/L Alkaline Phosphatase 128 H (38-126) U/L Troponin I 0.012 (0.000-0.034) ng/mL Total Protein 8.0 (6.3-8.2) g/dL Albumin 4.4 (3.5-5.0) g/dL Urine Color Urine Appearance (Clear) Urine pH (5.0-8.0) Ur Specific Rolette (1.001-1.035) Urine Protein (Negative) Urine Glucose (UA) (Negative) Urine Ketones (Negative) Urine Blood (Negative) Urine Nitrite (Negative) Urine Bilirubin (Negative) Urine Urobilinogen (<2.0) mg/dL Ur Leukocyte Esterase (Negative) Urine RBC (0-5) /hpf Urine WBC (0-5) /hpf Ur Squamous Epith Cells (0-4) /hpf Urine Bacteria (None) /hpf Urine Mucus (None) /hpf - EKG Data -: EKG Interpreted by Me (PG is sinus rhythm 85 CA 155 QRS 93 QTc 403) Disposition Clinical Impression: Altered mental state Disposition: HOME SELF-CARE Condition: Fair Instructions (If sedation given, give patient instructions): Altered Mental Status (ED) Is patient prescribed a controlled substance at d/c from ED?: No Referrals: Zabrina Moody MD [Primary Care Provider] - 1-2 days
[2021-08-07 00:13] LABS: Partial Thromboplastin Time 22.8 sec (22.0-30.0); Prothrombin Time 10.7 sec (9.0-12.0)
[2021-08-07 00:16] LABS: Appearance,Urine Clear (Clear); Bacteria,Urine Rare /hpf; Bilirubin,Urine Negative (Negative); Blood,Urine Negative (Negative); Color,Urine Yellow; Glucose,Urine (UA) Negative (Negative); Ketones,Urine Trace (Negative); Leukocyte Esterase,Urine Moderate (Negative); Mucus,Urine Occasional /hpf; Nitrite,Urine Negative (Negative); PH, Urine 5.5 (5.0-8.0); Protein,Urine Trace (Negative); RBC,Urine 2 /hpf (0-5); Specific Gravity,Urine 1.014 (1.001-1.035); Squamous Epithelial Cell,Urine 4 /hpf (0-4); Urobilinogen,Urine <2.0 mg/dL (<2.0); WBC,Urine 3 /hpf (0-5)
[2021-08-07 00:26] LABS: Albumin 4.4 g/dL (3.5-5.0); Calcium 9.3 mg/dL (8.4-10.2); Potassium 3.9 mmol/L (3.5-5.1); Total Bilirubin 0.8 mg/dL (0.2-1.3)
[2021-08-07 00:28] LABS: Magnesium 2.1 mg/dL (1.6-2.3)
[2021-08-07 01:19] VITALS: BP 174/90; PULSE 89; RESP 16
[2021-08-07] MEDS ORDERED: cefTRIAXone IN SWFI 1,000 MG/10 ML SYRINGE IVP STA (01:31)
[2021-08-07] MEDS ORDERED: CEPHALEXIN 500MG STARTER PACK 4 CAP BTL PO STA (01:31)
== END 2021-08-07 02:06 | disposition home or self-care (01) ==
LOC: EC 22:27
DX: R41.82 Altered mental status, unspecified (principal); I10 Essential (primary) hypertension
CPT/HCPCS: 36415; 93005; 80053; 83605; 83735; 84100; 84484; 85025; 85610; 85730; 81001; 99285; 96374; 96361; J0696

== ENCOUNTER 2022-01-18 16:36 | Inpatient (IN) | payer MEDICARE ==
[2022-01-18 17:30] LABS: Basophils % (A) 1 %; Eosinophils # (A) 0.1 k/uL (0-0.7); Eosinophils % (A) 1 %; HCT 39.7 % (34.0-46.0); HGB 13.1 gm/dL (11.4-16.0); Lymphocytes # (A) 1.4 k/uL (1.0-4.8); Lymphocytes % (A) 15 %; MCH 30.5 pg (25.0-35.0); MCV 92.4 fL (80.0-100.0); Mean Platelet Volume 7.8; Monocytes # (A) 0.6 k/uL (0-1.0); Monocytes % (A) 6 %; Neutrophils % (A) 76 %; Platelet Count 222 k/uL (150-450); RDW 11.3 % (11.5-15.5); WBC 9.3 k/uL (3.8-10.6)
[2022-01-18 17:40] LABS: Albumin 4.5 g/dL (3.5-5.0); Calcium 9.3 mg/dL (8.4-10.2); Potassium 3.5 mmol/L (3.5-5.1); Total Bilirubin 0.5 mg/dL (0.2-1.3); Total Protein 7.5 g/dL (6.3-8.2)
[2022-01-18 17:41] LABS: INR 0.9 (<1.2); Prothrombin Time 10.3 sec (9.0-12.0)
--- NOTE | 2022-01-18 18:35 | XR ---
EXAMINATION TYPE: XR chest 2V DATE OF EXAM: 01/18/2022 COMPARISON: NONE HISTORY: Shortness of breath TECHNIQUE: Frontal and lateral views of the chest are obtained. FINDINGS: There is small peripheral/pleural-based opacity in the right upper to midlung. There is mi ld bibasilar hazy opacities. No pneumothorax seen. The cardiac silhouette size is mildly enlarged. M ild cortical irregularity of the right upper to mid ribs. IMPRESSION: Small pleural-based right mid to upper lung opacity favored to represent small pleural e ffusion. Suggestion of right rib fractures, appears chronic.
--- NOTE | 2022-01-18 21:34 | ED ---
General Adult HPI - General Chief complaint: Neuro Symptoms/Deficit Stated complaint: R sided weakness,AMS Time Seen by Provider: 01/18/22 21:03 Source: patient, family, RN notes reviewed, old records reviewed Mode of arrival: wheelchair Limitations: no limitations - History of Present Illness Initial comments: 76 yo presenting for evaluation of right-sided facial numbness and some mild confusion. This been present for 24-48 hours according to patient's son. She states she feels a heaviness in the face. No slurring of speech. No chest pain. No fever. No abdominal pain. Previous history of hypertension and seizure disorder. No previous TIA or CVA. Symptoms have been present for greater than 24 hours. - Related Data Home Medications Medication Instructions Recorded Confirmed Losartan Potassium [Cozaar] 25 mg PO BID 01/19/22 01/19/22 Previous Rx's Medication Instructions Recorded Atorvastatin [Lipitor] 10 mg PO HS #30 tab 09/06/19 Allergies Allergy/AdvReac Type Severity Reaction Status Date / Time No Known Allergies Allergy Verified 01/19/22 09:10 Review of Systems ROS Statement: Those systems with pertinent positive or pertinent negative responses have been documented in the HPI. ROS Other: All systems not noted in ROS Statement are negative. Past Medical History Past Medical History: Eye Disorder, Hypertension, Osteoarthritis (OA), Seizure Disorder Additional Past Medical History / Comment(s): cataracts History of Any Multi-Drug Resistant Organisms: None Reported Past Surgical History: No Surgical Hx Reported Additional Past Surgical History / Comment(s): left/right cataract 08/06/14 Past Anesthesia/Blood Transfusion Reactions: No Reported Reaction Additional Past Anesthesia/Blood Transfusion Reaction / Comment(s): never had anes., no family problems Past Psychological History: Anxiety Smoking Status: Never smoker Past Alcohol Use History: None Reported Past Drug Use History: None Reported - Past Family History Mother Family Medical History: Cancer General Exam Limitations: no limitations General appearance: alert, in no apparent distress Head exam: Present: atraumatic, normocephalic Eye exam: Present: normal appearance, PERRL, EOMI ENT exam: Present: normal exam Neck exam: Present: normal inspection. Absent: tenderness, meningismus Respiratory exam: Present: normal lung sounds bilaterally. Absent: respiratory distress, wheezes Cardiovascular Exam: Present: regular rate, normal rhythm GI/Abdominal exam: Present: soft. Absent: distended, tenderness, guarding Extremities exam: Present: normal inspection, normal capillary refill. Absent: pedal edema Neurological exam: Present: alert, oriented X3, CN II-XII intact, other (I do not see any focal neurological deficits, NIH is 0). Absent: motor sensory deficit Psychiatric exam: Present: anxious Skin exam: Present: warm, dry, intact. Absent: cyanosis, diaphoretic Course Vital Signs 01/18/22 16:39 Temperature 98.1 F Pulse Rate 80 Respiratory 18 Rate Blood Pressure 187/90 O2 Sat by Pulse 95 Oximetry EKG Findings - EKG Comments: EKG Findings:: Sinus rhythm rate 72, UT interval 148, QRS duration 102, QTC [address] segment elevation. Medical Decision Making - Medical Decision Making Patient admitted for further evaluation, increased confusion, facial numbness, and occipital mass with bony distraction. - Lab Data Result diagrams: 01/18/22 16:56 01/18/22 16:56 Lab Results 01/18/22 01/18/22 01/18/22 Range/Units 16:56 16:56 16:56 WBC 9.3 (3.8-10.6) k/uL RBC 4.30 (3.80-5.40) m/uL Hgb 13.1 (11.4-16.0) gm/dL Hct 39.7 (34.0-46.0) % MCV 92.4 (80.0-100.0) fL MCH 30.5 (25.0-35.0) pg MCHC 33.0 (31.0-37.0) g/dL RDW 11.3 L (11.5-15.5) % Plt Count 222 (150-450) k/uL MPV 7.8 Neutrophils % 76 % Lymphocytes % 15 % Monocytes % 6 % Eosinophils % 1 % Basophils % 1 % Neutrophils # 7.0 (1.3-7.7) k/uL Lymphocytes # 1.4 (1.0-4.8) k/uL Monocytes # 0.6 (0-1.0) k/uL Eosinophils # 0.1 (0-0.7) k/uL Basophils # 0.0 (0-0.2) k/uL PT 10.3 (9.0-12.0) sec INR 0.9 (<1.2) Sodium 135 L (137-145) mmol/L Potassium 3.5 (3.5-5.1) mmol/L Chloride 98 (98-107) mmol/L Carbon Dioxide 23 (22-30) mmol/L Anion Gap 14 mmol/L BUN 17 (7-17) mg/dL Creatinine 0.87 (0.52-1.04) mg/dL Est GFR (CKD-EPI)AfAm 76 (>60 ml/min/1.73 sqM) Est GFR (CKD-EPI)NonAf 66 (>60 ml/min/1.73 sqM) Glucose 109 H (74-99) mg/dL Calcium 9.3 (8.4-10.2) mg/dL Total Bilirubin 0.5 (0.2-1.3) mg/dL AST 33 (14-36) U/L ALT 19 (4-34) U/L Alkaline Phosphatase 121 (38-126) U/L Troponin I (0.000-0.034) ng/mL Total Protein 7.5 (6.3-8.2) g/dL Albumin 4.5 (3.5-5.0) g/dL Urine Color Urine Appearance (Clear) Urine pH (5.0-8.0) Ur Specific Blackwell (1.001-1.035) Urine Protein (Negative) Urine Glucose (UA) (Negative) Urine Ketones (Negative) Urine Blood (Negative) Urine Nitrite (Negative) Urine Bilirubin (Negative) Urine Urobilinogen (<2.0) mg/dL Ur Leukocyte Esterase (Negative) Urine WBC (0-5) /hpf Ur Squamous Epith Cells (0-4) /hpf Urine Bacteria (None) /hpf Urine Mucus (None) /hpf 01/18/22 01/18/22 Range/Units 16:56 21:45 WBC (3.8-10.6) k/uL RBC (3.80-5.40) m/uL Hgb (11.4-16.0) gm/dL Hct (34.0-46.0) % MCV (80.0-100.0) fL MCH (25.0-35.0) pg MCHC (31.0-37.0) g/dL RDW (11.5-15.5) % Plt Count (150-450) k/uL MPV Neutrophils % % Lymphocytes % % Monocytes % % Eosinophils % % Basophils % % Neutrophils # (1.3-7.7) k/uL Lymphocytes # (1.0-4.8) k/uL Monocytes # (0-1.0) k/uL Eosinophils # (0-0.7) k/uL Basophils # (0-0.2) k/uL PT (9.0-12.0) sec INR (<1.2) Sodium (137-145) mmol/L Potassium (3.5-5.1) mmol/L Chloride (98-107) mmol/L Carbon Dioxide (22-30) mmol/L Anion Gap mmol/L BUN (7-17) mg/dL Creatinine (0.52-1.04) mg/dL Est GFR (CKD-EPI)AfAm (>60 ml/min/1.73 sqM) Est GFR (CKD-EPI)NonAf (>60 ml/min/1.73 sqM) Glucose (74-99) mg/dL Calcium (8.4-10.2) mg/dL Total Bilirubin (0.2-1.3) mg/dL AST (14-36) U/L ALT (4-34) U/L Alkaline Phosphatase (38-126) U/L Troponin I <0.012 (0.000-0.034) ng/mL Total Protein (6.3-8.2) g/dL Albumin (3.5-5.0) g/dL Urine Color Colorless Urine Appearance Clear (Clear) Urine pH 5.5 (5.0-8.0) Ur Specific Blackwell 1.004 (1.001-1.035) Urine Protein Negative (Negative) Urine Glucose (UA) Negative (Negative) Urine Ketones Negative (Negative) Urine Blood Negative (Negative) Urine Nitrite Negative (Negative) Urine Bilirubin Negative (Negative) Urine Urobilinogen <2.0 (<2.0) mg/dL Ur Leukocyte Esterase Trace H (Negative) Urine WBC 1 (0-5) /hpf Ur Squamous Epith Cells 1 (0-4) /hpf Urine Bacteria Rare H (None) /hpf Urine Mucus Rare H (None) /hpf Disposition Clinical Impression: Confusion, Occipital mass Disposition: ADMITTED IP TO THIS HOSP Condition: Good Is patient prescribed a controlled substance at d/c from ED?: No
--- NOTE | 2022-01-18 22:10 | CT ---
EXAM: CT brain wo con CLINICAL HISTORY: Weakness. COMPARISON: CTA 09/06/2019. MR 09/04/2019. TECHNIQUE: Contiguous axial noncontrast images of the brain were obtained. Coronal and sagittal refor mats were generated and reviewed. Automated dose control was used for this exam. FINDINGS: There is destructive changes of the occipital bone at the vertex with "moth eaten" appearance. There is associated mild soft tissue thickening and involving the subdural space. Otherwise no evidence for intracranial hemorrhage, mass effect or midline shift. The white matter is grossly preserved. Ventricular size and configuration is within normal limits for degree of parenchymal volume. The paranasal sinuses are clear. The mastoid air cells are clear. IMPRESSION: Interval destructive changes of the occipital bone with soft tissue thickening involving the underlyi ng subdural space. Findings are concerning for metastatic disease. Recommend MRI for optimal evaluati on.
[2022-01-18] MEDS ORDERED: ASPIRIN 325 MG TAB PO STA (22:19)
[2022-01-18] MEDS ORDERED: ACETAMINOPHEN TAB 325 MG TAB PO PRN (22:31)
[2022-01-18] MEDS ORDERED: NALOXONE 0.4 MG/ML 1 ML VIAL IV PRN (22:31)
[2022-01-18 22:32] LABS: Appearance,Urine Clear (Clear); Bacteria,Urine Rare /hpf; Bilirubin,Urine Negative (Negative); Blood,Urine Negative (Negative); Color,Urine Colorless; Glucose,Urine (UA) Negative (Negative); Ketones,Urine Negative (Negative); Leukocyte Esterase,Urine Trace (Negative); Mucus,Urine Rare /hpf; Nitrite,Urine Negative (Negative); PH, Urine 5.5 (5.0-8.0); Protein,Urine Negative (Negative); Specific Gravity,Urine 1.004 (1.001-1.035); Squamous Epithelial Cell,Urine 1 /hpf (0-4); Urobilinogen,Urine <2.0 mg/dL (<2.0); WBC,Urine 1 /hpf (0-5)
[2022-01-19] MEDS ORDERED: levETIRAcetam 500 MG TAB PO SCH (12:00)
--- NOTE | 2022-01-19 12:03 | P.CNNES ---
History of Present Illness Consult date: 01/19/22 Requesting physician: Austen Sky Reason for Consult: Altered mental status occipital mass History of Present Illness: This is a 76-year-old woman history of seizure and hypertension who presented emergency department on 01/18/2022 because of right facial numbness and some confusion. History is obtained from medical record as well as the patient nurse. She could not tell me what brought her to the hospital. She stated that she lives by herself and felt off at home. She notified me that she was slurring her her speech but to the ED team C notified them that she was having right facial numbness and denied any slurring of the speech. Per the ED the son notified the ED that the this presentation has been going on for 24-48 hours prior to presenting to the hospital. Patient does not have history of stroke or TIA. She denies any numbness on my examination or to the nurses. He denies any history of a mass or cancer. Per the ED seems that she has history of seizures but on the EMR there patient is not on any antiepileptic drug. Some other workup during this hospital visit consisted of: CT of the head without is reported as interval distractive changes of the occipital bone with soft tissue thickening involving the underlying subdural space. Finding are concerning for metastatic disease. Recommend MRI for optimal evaluation. I personally reviewed the CT and agree with the finding. She is afebrile. White blood cell is 9.3 thousand. Sodium is 135. The glucose is 109. Review of Systems Review of system: The 12 point system was reviewed and apparent positive and negative per HPI. Past Medical History Past Medical History: Eye Disorder, Hypertension, Osteoarthritis (OA), Seizure Disorder Additional Past Medical History / Comment(s): cataracts History of Any Multi-Drug Resistant Organisms: None Reported Past Surgical History: No Surgical Hx Reported Additional Past Surgical History / Comment(s): left/right cataract 08/06/14 Past Anesthesia/Blood Transfusion Reactions: No Reported Reaction Additional Past Anesthesia/Blood Transfusion Reaction / Comment(s): never had anes., no family problems Past Psychological History: Anxiety Additional Psychological History / Comment(s): related to procedure Smoking Status: Never smoker, Second hand smoke exposure Past Alcohol Use History: None Reported Past Drug Use History: None Reported - Past Family History Mother Family Medical History: Cancer Medications and Allergies Home Medications Medication Instructions Recorded Confirmed Type Atorvastatin [Lipitor] 10 mg PO HS #30 tab 09/06/19 01/19/22 Rx Losartan Potassium [Cozaar] 25 mg PO BID 01/19/22 01/19/22 History Allergies Allergy/AdvReac Type Severity Reaction Status Date / Time No Known Allergies Allergy Verified 01/19/22 09:10 Physical Examination - Vital Signs Vital Signs: Vital Signs Temp Pulse Pulse Resp BP BP Pulse Ox 01/19/22 04:12 98.3 F 67 16 163/76 93 L 01/19/22 01:00 98.1 F 71 14 167/88 93 L 01/18/22 16:39 98.1 F 80 18 187/90 95 Intake and Output 01/18/22 01/19/22 01/19/22 22:59 06:59 14:59 Intake Total 240 Balance 240 Intake: Oral 240 Other: # Voids 2 Weight 77.111 kg 77.111 kg GENERAL: The patient is lying in bed and is not in acute distress. CHEST: The heart rate is regular rate rhythm. No murmurs to auscultation. LUNG: Clear to auscultation bilaterally no wheezing noted throughout. Not labored breathing. ABDOMEN/GI: Bowel sounds present in all 4 quadrants. No tenderness to palpation throughout. NEUROLOGICAL: Higher mental function: The patient is awake, alert, oriented to self, place and time. Patient is slightly delay responding. Patient is following simple commands. No aphasia and no neglect. Cranial nerves: The pupils are round, equal and reactive to light. Visual ramirez are full to confrontation throughout. Extraocular movement is intact no nystagmus is noted. Facial sensation is normal to touch throughout. The facial strength is normal throughout. Hearing is normal bilaterally to hand rub. Tongue is midline and moved [id number] without any difficulty. No dysarthria is noted. Shoulder shrug is normal bilaterally. Motor: The strength is 5 over 5 throughout. Normal tone and bulk. Cerebellum: Normal finger to nose bilaterally. Sensation: Sensation is normal to touch throughout. Reflexes (right/left): 2+ throughout. Plantars are mute bilaterally. Results - Laboratory Findings CBC and BMP: 01/18/22 16:56 01/18/22 16:56 Abnormal Lab Findings: Abnormal Labs 01/18/22 01/18/22 01/18/22 16:56 16:56 21:45 RDW 11.3 L Sodium 135 L Glucose 109 H Ur Leukocyte Esterase Trace H Urine Bacteria Rare H Urine Mucus Rare H Assessment and Plan Assessment: Altered mental status. Has mass in occipital region. Rule out seizure. Occipital mass on CT head History of seizure and on EMR not on seizure medications Plan: I ordered MRI of the brain with and without. I also ordered a routine EEG I started the patient on Keppra 500 mg every 12 hours Every 4 hour neuro checks Oncology team is consulted Patient needs neurosurgical evaluation which we don't have as an inpatient. We'll defer the rest of the medical management to primary team The plan is discussed with the patient's nurse. Thank you for the consultation. UPDATE: It was updated to the patient EEG board early since the patient was not feeling well and only 6 minutes of recording was captured. It seems to the patient's was behaving very on and was aggressive and wanted to call 911 according to the technology applications consultant. Preliminary EEG: Is suboptimal recording and only 6 minutes was recorded. From the limited study, the background is normal, there is no focal slowing, epileptiform discharges or seizure in the EEG I stopped Keppra since it can cause behavioral changes. I ordered Ativan 1 mg one time in order to help patient relax to obtain MRI. As a result will attempt to transfer the patient for neurosurgical evaluation. Franki Oleary M.D. Neuro-Hospitalist. Time with Patient: Greater than 30
[2022-01-19] MEDS ORDERED: LORazepam 1 MG/0.5 ML VIAL IV STA (15:53)
--- NOTE | 2022-01-19 16:47 | P.HPIM ---
History of Present Illness H&P Date: 01/19/22 Chief Complaint: Altered mental status 76 yo presenting for evaluation of right-sided facial numbness and some mild confusion. This been present for 24-48 hours according to patient's son. She states she feels a heaviness in the face. No slurring of speech. No chest pain . No fever. No abdominal pain. Previous history of hypertension and seizure disorder. No previous TIA or CVA. Symptoms have been present for greater than 24 hours. Patient did not report any neurological deficit or heaviness of the face upon presentation to ED Workup completed in ED reveals blood work with WBC of 9.3, hemoglobin of 13.1 and platelet count of 222, sodium 135, potassium 2.5, BUN/creatinine 17/0.87 and blood glucose of 109 EKG Findings:: Sinus rhythm rate 72, AL interval 148, QRS duration 102, QTC [address] segment elevation. CT of the head without is reported as interval distractive changes of the occipital bone with soft tissue thickening involving the underlying subdural space. Finding are concerning for metastatic disease. Recommend MRI for optimal evaluation. Review of Systems ROS unobtainable: due to mental status Past Medical History Past Medical History: Eye Disorder, Hypertension, Osteoarthritis (OA), Seizure Disorder Additional Past Medical History / Comment(s): cataracts History of Any Multi-Drug Resistant Organisms: None Reported Past Surgical History: No Surgical Hx Reported Additional Past Surgical History / Comment(s): left/right cataract 08/06/14 Past Anesthesia/Blood Transfusion Reactions: No Reported Reaction Additional Past Anesthesia/Blood Transfusion Reaction / Comment(s): never had anes., no family problems Past Psychological History: Anxiety Additional Psychological History / Comment(s): related to procedure Smoking Status: Never smoker, Second hand smoke exposure Past Alcohol Use History: None Reported Past Drug Use History: None Reported - Past Family History Mother Family Medical History: Cancer Medications and Allergies Home Medications Medication Instructions Recorded Confirmed Type Atorvastatin [Lipitor] 10 mg PO HS #30 tab 09/06/19 01/19/22 Rx Losartan Potassium [Cozaar] 25 mg PO BID 01/19/22 01/19/22 History Allergies Allergy/AdvReac Type Severity Reaction Status Date / Time No Known Allergies Allergy Verified 01/19/22 09:10 Physical Exam Vitals: Vital Signs Temp Pulse Pulse Resp BP BP Pulse Ox 01/19/22 04:12 98.3 F 67 16 163/76 93 L 01/19/22 01:00 98.1 F 71 14 167/88 93 L 01/18/22 16:39 98.1 F 80 18 187/90 95 Intake and Output 01/18/22 01/19/22 01/19/22 22:59 06:59 14:59 Intake Total 240 Balance 240 Intake: Oral 240 Other: # Voids 2 Weight 77.111 kg 77.111 kg General appearance: Present: average body habitus, cooperative, no acute distress Eyes: Present: anicteric sclerae, EOMI, PERRLA, normal appearance Neck: Present: normal ROM. Absent: lymphadenopathy, rigidity, thyromegaly Carotids: negative: bruit present Thyroid: bilateral: normal size, negative: enlarged, nodule Respiratory: bilateral: CTA, negative: rales, rhonchi, wheezing Cardiovascular: regular: normal: S1, S2 Gastrointestinal: normal bowel sounds, soft. Absent: distended, organomegaly, tenderness Integumentary: Present: normal turgor. Absent: jaundiced, rash, ulcer Neurologic: Present: CNII-XII intact. Absent: focal deficits Musculoskeletal: Present: gait normal, strength equal bilaterally Results CBC & Chem 7: 01/18/22 16:56 01/18/22 16:56 Labs: Abnormal Lab Results - Last 24 Hours (Table) 01/18/22 01/18/22 01/18/22 Range/Units 16:56 16:56 21:45 RDW 11.3 L (11.5-15.5) % Sodium 135 L (137-145) mmol/L Glucose 109 H (74-99) mg/dL Ur Leukocyte Esterase Trace H (Negative) Urine Bacteria Rare H (None) /hpf Urine Mucus Rare H (None) /hpf Assessment and Plan Assessment: 1. Altered mental status; rule out seizure disorder - EEG was ordered; test needed to be aborted 6 minutes into starting EEG due to patient becoming aggressive and agitated - Patient reevaluated by neurology and is recommended transferred to a tertiary care center for neurosurgical evaluation and higher level of care 2. Occipital mass; seen on CT of the head with soft tissue thickening underlying the bony lesion; MRI of the brain is recommended - Neurology on board; patient is getting neuro checks every 4 hours 3. Hypertension; Cozaar 25 mg twice a day 4. Hyperlipidemia; patient takes Lipitor 10 mg by mouth daily at bedtime 5. Osteoarthritis; Tylenol when necessary DVT prophylaxis; SCDs CODE STATUS; full code
--- NOTE | 2022-01-19 17:48 | P.CONS ---
History of Present Illness - Reason for Consult Consult date: 01/19/22 Lytic lesion of the left occipital bone - Chief Complaint Right sided facial numbness - History of Present Illness Ms. Colon is a 76-year-old woman with a past medical history of hypertension, hyperlipidemia, and history of seizures who presented with acute onset of right-sided face numbness. She notes during this time, she had intermittent dysarthria and right-sided facial droopiness. She denied any other focal weakness, headaches, blurry vision. She has not had any prior episodes. Given her signs and symptoms, she presented to the ED for additional management and monitoring. CT of the brain without contrast on 01/18/2022 revealed destructive moth-eaten left occipital bone along with mild soft tissue thickening involving the subdural space. Neurology was consulted and she was given a full dose aspirin. MRI of the brain has been ordered and is currently pending. CBC and CMP did not reveal any acute abnormalities. Currently, she feels about the same as prior to admission. She denies any headaches, blurry vision, nausea, vomiting. She still has occasional dysarthria and notes having right-sided facial numbness. She denies any prior constitutional symptoms, anorexia, or unexplained weight loss prior to admission. She has no cough, shortness of breath, abdominal pain, constipation, melena, hematochezia, or prior blood per rectum. Past Medical History Past Medical History: Eye Disorder, Hypertension, Osteoarthritis (OA), Seizure Disorder Additional Past Medical History / Comment(s): cataracts History of Any Multi-Drug Resistant Organisms: None Reported Past Surgical History: No Surgical Hx Reported Additional Past Surgical History / Comment(s): left/right cataract 08/06/14 Past Anesthesia/Blood Transfusion Reactions: No Reported Reaction Additional Past Anesthesia/Blood Transfusion Reaction / Comm: never had anes., no family problems Past Psychological History: Anxiety Additional Psychological History / Comment(s): related to procedure Smoking Status: Never smoker, Second hand smoke exposure Past Alcohol Use History: None Reported Past Drug Use History: None Reported - Past Family History Mother Family Medical History: Cancer Medications and Allergies Home Medications Medication Instructions Recorded Confirmed Type Atorvastatin [Lipitor] 10 mg PO HS #30 tab 09/06/19 01/19/22 Rx Losartan Potassium [Cozaar] 25 mg PO BID 01/19/22 01/19/22 History Allergies Allergy/AdvReac Type Severity Reaction Status Date / Time No Known Allergies Allergy Verified 01/19/22 09:10 Physical Exam Vitals: Vital Signs Temp Pulse Resp BP Pulse Ox 01/19/22 13:19 98.2 F 71 16 166/85 92 L 01/19/22 04:12 98.3 F 67 16 163/76 93 L 01/19/22 01:00 98.1 F 71 14 167/88 93 L Intake and Output 01/19/22 01/19/22 01/19/22 06:59 14:59 22:59 Intake Total 240 Balance 240 Intake: Oral 240 Other: # Voids 2 Weight 77.111 kg - Constitutional General appearance: average body habitus, no acute distress - EENT Subcutaneous firm nodule noted at the top of the head. There is no skin discoloration or tenderness to palpation Eyes: EOMI - Neck Neck: no lymphadenopathy - Respiratory Respiratory: bilateral: CTA - Cardiovascular Rhythm: regular - Gastrointestinal General gastrointestinal: no distended, normal bowel sounds, soft, no tenderness - Integumentary Integumentary: no rash - Neurologic Neurologic: CNII-XII intact Results CBC & Chem 7: 01/18/22 16:56 01/18/22 16:56 Labs: Abnormal Lab Results - Last 24 Hours (Table) 01/18/22 01/18/22 Range/Units 16:56 21:45 Sodium 135 L (137-145) mmol/L Glucose 109 H (74-99) mg/dL Ur Leukocyte Esterase Trace H (Negative) Urine Bacteria Rare H (None) /hpf Urine Mucus Rare H (None) /hpf CT Scan - head: report reviewed, image reviewed Assessment and Plan Assessment: Ms. Colon is a 76-year-old woman with a past medical history of hypertension, hyperlipidemia, and prior seizure who presents with acute onset of right-sided facial numbness, facial droop, and dysarthria. CT of the brain without contrast reveals destructive lytic appearance of the left occipital bone. CMP and CBC do not reveal any acute abnormalities at this time. She did not have any signs or symptoms concerning for malignancy. Plan: -Agree with brain MRI at this time for additional visualization of brain parench yma -Depending on the findings of brain MRI, additional imaging such as CT of the chest/abdomen/pelvis could be pursued if there is evidence of brain mass potentially concerning for metastatic disease versus primary brain lesion -She has no anemia, hypercalcemia, or hyperproteinemia at this time to suggest pursuing workup for multiple myeloma -We will follow-up MRI imaging of the brain in order subsequent workup accordingly -If brain MRI reveals mass within the parenchyma causing vasogenic edema, dexamethasone 10 mg IV loading dose followed by 4 mg IV every 6 hours should be initiated. She would also need PPI daily for GI prophylaxis
[2022-01-19] MEDS ORDERED: LOSARTAN 25 MG TAB PO SCH (21:00)
[2022-01-19] MEDS ORDERED: ATORVASTATIN 10 MG TAB PO SCH (21:00)
--- NOTE | 2022-01-19 22:54 | P.PN ---
Progress Note - Text Progress Note Date: 01/19/[address] Jayce Patiño with neurosurgery who will accept patient at [facility]. Transfer team will contact [facility] with additional information. Updated Administrative Charge. Awaiting bed placement.
[2022-01-20 05:16] VITALS: BP 133/74; PULSE 77; RESP 14; TEMP 97.7
--- NOTE | 2022-02-12 05:39 | P.DS ---
Providers Date of admission: 01/18/22 22:31 Expected date of discharge: 01/19/22 Attending physician: Bhavna Keyes Consults: 01/18/22 22:31 Consult Physician Routine Consulting Provider: Franki Oleary Consult Reason/Comments: altered mental status occipital mass Do you want consulting provider notified?: Yes Consult Physician Routine Consulting Provider: Ronald Francois Consult Reason/Comments: erosive occipital mass Do you want consulting provider notified?: Yes Primary care physician: Zabrina Moody MD Hospital Course: 76 yo presenting for evaluation of right-sided facial numbness and some mild confusion. This been present for 24-48 hours according to patient's son. She states she feels a heaviness in the face. No slurring of speech. No chest pain. No fever. No abdominal pain. Previous history of hypertension and seizure disorder. No previous TIA or CVA. Symptoms have been present for greater than 24 hours. Patient did not report any neurological deficit or heaviness of the face upon presentation to ED Workup completed in ED reveals blood work with WBC of 9.3, hemoglobin of 13.1 and platelet count of 222, sodium 135, potassium 2.5, BUN/creatinine 17/0.87 and blood glucose of 109 EKG Findings:: Sinus rhythm rate 72, NE interval 148, QRS duration 102, QTC [address] segment elevation. CT of the head without is reported as interval distractive changes of the occipital bone with soft tissue thickening involving the underlying subdural space. Finding are concerning for metastatic disease. Recommend MRI for optimal evaluation. 1. Altered mental status; rule out seizure disorder - EEG was ordered; test needed to be aborted 6 minutes into starting EEG due to patient becoming aggressive and agitated - Patient reevaluated by neurology and is recommended transferred to a tertiary care center for neurosurgical evaluation and higher level of care 2. Occipital mass; seen on CT of the head with soft tissue thickening underlying the bony lesion; MRI of the brain is recommended - Neurology on board; patient is getting neuro checks every 4 hours 3. Hypertension; Cozaar 25 mg twice a day 4. Hyperlipidemia; patient takes Lipitor 10 mg by mouth daily at bedtime 5. Osteoarthritis; Tylenol when necessary DVT prophylaxis; SCDs CODE STATUS; full code UPDATE: It was updated to the patient EEG board early since the patient was not feeling well and only 6 minutes of recording was captured. It seems to the patient's was behaving very on and was aggressive and wanted to call 911 according to the food technologist. Preliminary EEG: Is suboptimal recording and only 6 minutes was recorded. From the limited study, the background is normal, there is no focal slowing, epileptiform discharges or seizure in the EEG I stopped Keppra since it can cause behavioral changes. I ordered Ativan 1 mg one time in order to help patient relax to obtain MRI. As a result will attempt to transfer the patient for neurosurgical evaluation. Patient transferred to [facility] for higher level of care Patient Condition at Discharge: Good Plan - Discharge Summary New Discharge Prescriptions: No Action Atorvastatin [Lipitor] 10 mg PO HS #30 tab Losartan Potassium [Cozaar] 25 mg PO BID Discharge Medication List Atorvastatin [Lipitor] 10 mg PO HS #30 tab 09/06/19 [Rx] Losartan Potassium [Cozaar] 25 mg PO BID 01/19/22 [History] Follow up Appointment(s)/Referral(s): Zabrina Moody MD [Primary Care Provider] - 1-2 days Discharge Disposition: OTHER INSTITUTION NOT DEFINED
== END 2022-01-20 05:45 | disposition short-term general hospital (02) | DRG 948 ==
LOC: EC 16:36 → 5NMEDONC 22:31
PROVIDERS: ADMIT Hospitalist; ATTEND Hospitalist
DX: R41.82 Altered mental status, unspecified (principal); E78.5 Hyperlipidemia, unspecified; Z20.822 Contact with and (suspected) exposure to COVID-19; M79.89 Other specified soft tissue disorders; F41.9 Anxiety disorder, unspecified; Z98.41 Cataract extraction status, right eye; G40.909 Epilepsy, unspecified, not intractable, without status epilepticus; I10 Essential (primary) hypertension; M19.90 Unspecified osteoarthritis, unspecified site; R29.810 Facial weakness; Z79.899 Other long term (current) drug therapy; Z98.42 Cataract extraction status, left eye; Z77.22 Contact with and (suspected) exposure to environmental tobacco smoke (acute) (chronic)
CPT/HCPCS: 36415; 70450; 71046; 80053; 81001; 84484; 85025; 85610; 87635; 93005; 99285